=== PATIENT | male | born 1955 | race Caucasian/White ===

== ENCOUNTER 2018-12-11 18:57 | Observation (INO) | payer MEDICAID, SELFPAY ==
[2018-12-11] VITALS (7 sets, daily range): BP systolic 121–151; BP diastolic 83–96; PULSE 65–84; RESP 18–24; TEMP 36.4–36.7; O2SAT 93–96; BMI 41.0; BMI 33.4; BMI 33.5
--- NOTE | 2018-12-11 19:09 | EKG12_ITS ---
Test Reason : CP Blood Pressure : / mmHG Vent. Rate : 076 BPM Atrial Rate : 076 BPM P-R Int : 200 ms QRS Dur : 090 ms QT Int : 404 ms P-R-T Axes : 025 047 115 degrees QTc Int : 454 ms Normal sinus rhythm T wave abnormality, consider lateral ischemia Abnormal ECG Confirmed by YANET BELLO, RADHA ([id number]), newspaper photo editor NAOMEI YEAGER ([id number]) on 12/16/2018 11:06:32 AM Referred By: DC Confirmed By:RAJESH HOLT MD
--- NOTE | 2018-12-11 19:15 | RAD_ITS ---
STUDY: X-RAY CHEST REASON FOR EXAM: Male, 62 years old. Chest pain TECHNIQUE: Portable chest COMPARISON: None. FINDINGS: There are mild bilateral pulmonary opacities. There is no demonstrated pleural abnormality. There is generalized cardiomegaly. Normal mediastinum and rock. There is mild prominence of the pulmonary vessels. Normal visualized aortic arch and descending thoracic aorta. Normal visualized thoracic spine. Normal visualized ribs, clavicles, and shoulders. There is no demonstrated abnormality of the visualized soft tissue structures of the upper abdomen. RAD/Chest 1 View (Portable) IMPRESSION: There is cardiomegaly, mild pulmonary venous congestion Electronically Signed: Zhang Sánchez, at 20:39 EDT Tel , Service support ,
[2018-12-11] MEDS: 0.9% Normal Saline 1,000 ML 150 ML IV (19:18)
[2018-12-11 19:20] LABS: Absolute Lymphocyte Count 2.43 X10^3/ul (0.83-4.51); Absolute Neutrophil Count 5.7 X10^3/uL (2.0-7.7); Basophil# 0.05 X10^3/uL; Basophil% 0.5 % (0-1); Eosinophil# 0.24 X10^3/uL; Eosinophils% 2.6 % (0-5); Hematocrit 45.2 % (40-54); Hemoglobin 15.3 g/dl (13.0-16.5); Lymphocyte # 2.43 X10^3/ul (4.0); Lymphocyte % 26.5 % (19-41); Mean Corp Hgb Conc 33.8 g/gl (32-36); Mean Corpuscular Hgb 30.4 pg (27.0-32.0); Mean Corpuscular Volume 89.7 fL (80-94); Monocyte# 0.68 X10^3/uL; Monocyte% 7.4 % (0-10); Neutrophil # 5.71 X10^3/uL (2.7-7.7); Neutrophil % 62.3 % (47-70); Platelet Count 211 K/mm3 (150-450); RBC Distribution Width CV 13.3 % (11.6-14.6); RBC Distribution Width SD 43.2 fl (35.1-43.9); Red Blood Count 5.04 M/mm3 (4.6-6.2); White Blood Count 9.2 K/mm3 (4.4-11.0)
[2018-12-11 19:21] LABS: POSITIVE COUNT NO; POSITIVE DIFFERENTIAL NO; POSITIVE MORPHOLOGY NO
[2018-12-11 19:36] LABS: Anion Gap 5 (5-15); BUN 13 mg/dL (7-18); BUN/Creat Ratio 10.4 RATIO (10-20); Calcium,Total 8.7 mg/dL (8.5-10.1); Chloride 108 mmol/L (98-107); Creatinine, Serum 1.25 mg/dL (0.70-1.30); EST Glomerular Filtration Rate 62 mL/min (>60); Est Glom Filt Rate - Afr Amer 75 mL/min (>60); Estimated Creatinine Clearance 54.58 ml/min; Glucose 111 mg/dL (74-106); Potassium 3.4 mmol/L (3.5-5.1); Sodium Level 140 mmol/L (136-145)
[2018-12-11 19:41] LABS: D-Dimer Quantitative (DVT/PE) 0.27 FEU/ug/m (0.27-0.49)
--- NOTE | 2018-12-11 20:34 | ED.DCSUM_ITS ---
- ER Visit Summary Date of Service: 12/11/18 Chief Complaint: [Chest pain] History of Present Illness: The patient is a 62 M Zentz to the emergency department chest discomfort that started about 10 minutes ago. Patient describes a tightness retrosternal left chest that does not seem to radiate. He states that about half an hour ago he was standing and looking at a vehicle in the garage when he began feeling very dizzy and felt very short of breath. Patient began sweating profusely and felt like he was in a pass out. EMS was called. Patient then subsequently developed chest discomfort. Patient also states that he recently found out today that his vvovvad-vt-yir had . Patient does have a heart history with one-vessel CABG in 1999 at [facility] [place]. Patient has been noncompliant with his medications.] Patient currently rates his pain is a 1 out of 10. Physical Examination: [HEGONZALEZ-PERRLA, EOMI. Cranial nerves II through XII grossly intact. TMs clear. Mucous membranes moist. No adenopathy. Cardiovascular-regular rate and rhythm without murmur or ectopy Lungs-clear to auscultation, chest wall stable without crepitus or subcu emphysema Abdomen-normoactive bowel sounds, soft, nontender, no rebound or rigidity, no peritoneal signs. Extremities-intact ?4, normal range of motion, normal pulses, atraumatic] Test Results: [EKG obtained arrival shows sinus rhythm with a ventricular rate of [address] changes noted when compared with prior EKG from 2016 no significant new changes noted. CBC with differential showed a white count of 9.2, hemoglobin 15, hematocrit 45, platelets 211. Chemistries unremarkable. Troponin is less than 0.015. D-dimer was 0.27. Chest x-ray showed nothing acute.] Emergency Department Course and Treatment: [Patient had already taken aspirin today.] Treatment Plan: [Admit for further work-up and evaluation] Disposition: [Admit] Impression: [Chest pain-rule out acute coronary syndrome] This note was generated with Lightbox dictation software. It may contain incorrect words, spelling, and punctuation that were not noted in review of the chart prior to signing ED Disposition - Plan for ED Patient: Referrals: Care Physician,No Primary [Primary Care Provider] -
--- NOTE | 2018-12-11 20:50 | HP.PCM_ITS ---
Problem List (1) Syncope Status: Acute History of Present Illness Date of Admission: 12/11/18 Chief Complaint: syncope The patient is a 62 year old M with a significant history of CAD status post one-vessel arthroscopic CABG in 1999 at [facility] who presented to the emergency department with syncopal episode. Reportedly patient was working in his son's garage. While at the garage he felt hot; funny; diaphoretic and was about to pass out. He sat directly under a fan. He reported that his family said he passed out and his eyes rolled back. He reported that he felt numbness in the fingers of his bilateral hands reminiscent to his previous CAD; yet without Chest pain as in his previous CAD. He reported repeated episodes of the symptoms above. Patient has not followed up medically because he does not have insurance. Associated with his symptoms is nausea. Importantly while patient denies sapna chest pain to me he reported chest pain to the emergency department doctor; and the squad. Past Medical History Medical History: Medical History (Last Reviewed 12/12/18 @ 02:10 by Davidson Newman MD) HTN (hypertension) I10 Allergies No Known Allergies Allergy (Verified 02/21/16 07:34) Home Medications: Ambulatory Orders Medication Instructions Recorded Aspirin 325 mg PO DAILY@0800 02/21/16 Grape Seed Extract [Grape Seed] 50 mg PO DAILY 12/11/18 Multivit-Mins/Iron/Folic/Lycop 1 tab PO DAILY 12/11/18 [Centrum Men's Tablet] Surgical History: coronary bypass surgery, - Smoking Status: Former smoker Alcohol: Occasional - *Family History Maternal History Items: Heart Disease - His mother had heart disease in her old age Paternal History Items: Heart Disease - His father had heart disease in his 70s Review of Systems Constitutional: Denies: Chills, Fever, Weight Change HEENT: Denies: Head Aches, Sinus Congestion, Sinus Drainage Cardiovascular: Reports: Syncope. Denies: Chest Pain, Palpitations Respiratory: Denies: Cough, Shortness of breath at rest, Sputum production Gastrointestinal: Reports: Nausea. Denies: Abdominal Pain, Vomiting Genitourinary: Denies: Dysuria Musculoskeletal: Denies: Joint Pain, Joint Tenderness Skin: Denies: Rash, Wounds Neurological: Reports: Numbness. Denies: Focal weakness Psychiatric: Denies: Anxiety, Depression, Homicidal Ideations, Suicidal Ideations Hematologic/ Lymphatic: Denies: Easy Bruising, Easy Bleeding VTE Information - Inpt Only VTE Present on Admission: No VTE Mechan Device Prophylaxis: None VTE Pharm Prophylaxis ordered?: Yes Patient Problems: Active and Suspected Problems (Last Updated 12/11/18 @ 21:29 by Davidson Newman MD) Syncope (Acute) - Physical Exam General: Alert, Oriented x3, Cooperative HEENT: Atraumatic, PERRLA, EOMI, Normocephalic Neck: Supple, No JVD, Negative Carotid Bruits Lungs: Clear to auscultation, Normal air movement Cardiovascular: Regular rate, No murmurs Abdomen: Bowel Sounds Present, Soft, Non Tender Extremities: No edema, Capillary Refill Less than 3 Seconds Skin: No rashes, No breakdown Musculoskeletal: No Tenderness to Palpation of Joints or Extremities Neurological: Neuro grossly intact Psych/Mental Status: Normal Affect, Appropriate Vital Signs Temp Pulse Resp BP Pulse Ox 98.0 F 73 24 H 140/88 H 94 12/11/18 18:58 12/11/18 19:58 12/11/18 19:58 12/11/18 19:58 12/11/18 19:58 Oxygen Flow Rate (L/min) 2 Oxygen Delivery Method Nasal Cannula Weight: 115.2 kg Body Mass Index (BMI) 41.0 Laboratory Tests Past 24 Hrs 12/11/18 12/11/18 12/11/18 19:10 19:10 19:10 WBC 9.2 RBC 5.04 Hgb 15.3 Hct 45.2 MCV 89.7 MCH 30.4 MCHC 33.8 RDW 13.3 RDW Differential 43.2 Plt Count 211 MPV 11.0 Immature Gran % (Auto) 0.700 Neut % (Auto) 62.3 Lymph % (Auto) 26.5 [place] % (Auto) 7.4 Eos % (Auto) 2.6 Baso % (Auto) 0.5 Absolute Neuts (auto) 5.7 Absolute Lymphs (auto) 2.43 Total Counted Not Reportable D-Dimer Quant (PE/DVT) 0.27 Sodium 140 Potassium 3.4 L Chloride 108 H Carbon Dioxide 27.0 Anion Gap 5 BUN 13 Creatinine 1.25 Estim Creat Clear Calc 54.58 Est GFR (MDRD) Af Amer 75 Est GFR (MDRD) Non-Af 62 BUN/Creatinine Ratio 10.4 Glucose 111 H Calcium 8.7 Troponin I < 0.015 Assessment/Plan All Active Problems (Last Updated 12/11/18 @ 21:29 by Davidson Newman MD) Syncope (Acute) The patient is a 62 year old M with a significant history of CAD status post one-vessel arthroscopic CABG in 1999 at [facility] who presented to the emergency department with syncopal episode. Syncopal episode Differential diagnosis includes vasovagal syncope. However due to his previous history of CAD s/p CABG; and which he correlates with his present symptoms; will consult Cardiology for cardiac source of syncope. Admit to PCU on telemetry. We will continue aspirin. Nitroglycerin as needed. We will start patient on high intensity statin. Chest x-ray showed cardiomegaly with mild pulmonary congestion. Stop IVF started at ED. EKG showed T wave inversions in lateral leads with J-point elevation in V2. EKG was unchanged from that on 23 February 2016. Will order echocardiogram. Get orthostatic vitals. First troponin was negative; trend. HTN On presentation his blood pressure was not within goal. Will start on amlodipine. Trend blood pressure and adjust blood pressure management. Hypokalemia On presentation his potassium was 3.4. Replaced. DVT Prophylaxis SC Lovenox. Code Visit OBSV E&M: 46489 Initial observation care L3
--- NOTE | 2018-12-11 21:50 | ECHOD_ITS ---
Reason For Study: Syncope/Near Syncope Procedure This was a 2D Doppler, Color Flow transthoracic echocardiogram. Exam performed portable in patient room. Left Ventricle Normal left ventricle. Left ventricular systolic function is lower limits of normal. The estimated ejection fraction is 53 %. No regional wall motion abnormalities noted. Right Ventricle Normal RV size. Normal systolic function. Atria The left atrium is mildly enlarged. Normal right atrium. Mitral Valve Normal mitral valve. Mild (1+) eccentric mitral valve insufficiency. Tricuspid Valve Normal tricuspid valve. Unable to estimate RV systolic pressure due to inadequate jet, pulmonary artery pressure probably normal. Aortic Valve The aortic valve is not well visualized. Pulmonic Valve Normal pulmonic valve. Great Vessels Normal aortic root. The pulmonary artery is normal size. Normal inferior vena cava. Pericardium/Pleural No pericardial effusion. MMode/2D Measurements & Calculations LVIDd: 4.2 cm IVSd: 1.7 cm LA dimension: 4.2 cm LVIDs: 3.3 cm LVPWd: 1.3 cm FS: 22.0 % LAV(MOD-bp): 72.4 ml LVAd ap4: 38.8 cm2 SV(MOD-sp4): 69.1 ml LAV(MOD-bp) Indexed: 33.2 ml/m2 EDV(MOD-sp4): 135.0 ml LAV(MOD-sp2): 79.6 ml EDV(sp4-el): 139.5 ml LAV(MOD-sp4): 65.6 ml LVAs ap4: 24.6 cm2 ESV(MOD-sp4): 66.0 ml ESV(sp4-el): 63.1 ml EF(MOD-sp4): 51.1 % EF(sp4-el): 54.8 % SV(sp4-el): 76.4 ml LA A4 area: 21.3 cm2 Time Measurements MV dec time: 0.26 sec Doppler Measurements & Calculations MV E max papa: 57.4 cm/sec Lat Peak E' Papa: 6.3 cm/sec Med Peak E' Papa: 6.9 cm/sec MV A max papa: 70.6 cm/sec E/E' lat: 9.1 E/E' med: 8.3 MV E/A: 0.81 MV V2 max: 84.6 cm/sec MV P1/2t max papa: 70.2 cm/sec Ao V2 max: 93.2 cm/sec MV max P.9 mmHg MV P1/2t: 89.4 msec Ao max P.5 mmHg MV V2 mean: 47.2 cm/sec MV mean P.0 mmHg MV dec slope: 229.9 cm/sec2 MV V2 VTI: 21.5 cm MVA(P1/2t): 2.5 cm2 LV V1 max: 66.9 cm/sec MR max papa: 375.1 cm/sec PA V2 max: 74.2 cm/sec LV V1 max P.8 mmHg MR max P.3 mmHg Interpretation Summary Normal left ventricle. Left ventricular systolic function is lower limits of normal. The estimated ejection fraction is 53 %. No regional wall motion abnormalities noted. Mild (1+) eccentric mitral valve insufficiency. Ordering Physician: Davidson Newman Referring Physician: julissa PCP Performed By: Lazaro Schafer RCS
--- NOTE | 2018-12-11 21:50 | EKG12_ITS ---
Test Reason : CP ADMIT Blood Pressure : / mmHG Vent. Rate : 062 BPM Atrial Rate : 062 BPM P-R Int : 202 ms QRS Dur : 088 ms QT Int : 424 ms P-R-T Axes : 032 033 116 degrees QTc Int : 430 ms Normal sinus rhythm Cannot rule out Inferior infarct , age undetermined T wave abnormality, consider lateral ischemia Abnormal ECG When compared with ECG of 11-DEC-2018 19:01, MANUAL COMPARISON REQUIRED, DATA IS UNCONFIRMED Confirmed by YANET BELLO, RADHA ([id number]), editor producer NAOMIE YEAGER ([id number]) on 12/17/2018 6:47:32 AM Referred By: DR ESTES Confirmed By:RAJESH HOLT MD
[2018-12-11] MEDS: Atorvastatin Calcium 80 MG Tablet PO (23:26)
[2018-12-12] VITALS (22 sets, daily range): BP systolic 138–187; BP diastolic 76–122; PULSE 56–90; RESP 14–23; TEMP 36.7–36.9; O2SAT 91–99
[2018-12-12 04:27] LABS: Cholesterol 179 mg/dL (200); High Density Lipoprotein 36 mg/dL; Triglycerides 204 mg/dL; Very Low Density Lipoprotein 41 mg/dL (5-40)
--- NOTE | 2018-12-12 07:41 | CON.PCM_ITS ---
Reason for Consult Date of Consultation: 12/12/18 Reason for Consultation: Near syncope History of Present Illness: The patient is a 62 year old M with a previous medical history significant for coronary artery disease status post coronary artery bypass surgery in 1999 with a single vessel. This was performed at [facility]. He has had no medical or cardiological follow-up. He says that he has had a few episodes of presyncope where he breaks out into a profuse sweat. He sometimes also gets dizzy when he bends forward. Yesterday he had a similar episode and was associated with mild chest discomfort. There was diaphoresis noted no palpitations were present. He remains fairly active. He has had no sapna syncopal episodes. He denies any orthopnea paroxysmal nocturnal dyspnea or pedal edema. He has been somewhat compliant with his medications. [] Past Medical History Allergies/Adverse Reactions: Allergies No Known Allergies Allergy (Verified 02/21/16 07:34) Home Medications: Ambulatory Orders Medication Instructions Recorded Aspirin 325 mg PO DAILY@0800 02/21/16 Grape Seed Extract [Grape Seed] 50 mg PO DAILY 12/11/18 Multivit-Mins/Iron/Folic/Lycop 1 tab PO DAILY 12/11/18 [Centrum Men's Tablet] Surgical History: coronary bypass surgery, - - *Family History Maternal History Items: Heart Disease - His mother had heart disease in her old age Paternal History Items: Heart Disease - His father had heart disease in his 70s Lives: Alone Smoking Status: Former smoker Alcohol: Occasional Drugs: None Review of Systems - Review of Systems General: Denies: Fever, Night Sweats, Fatigue HEENT: Denies: Vision Change Cardiovascular: Reports: Chest Discomfort, Dizziness, Near Syncope. Denies: Shortness of Breath, Orthopnea, PND, Peripheral Edema, Palpitations, Lightheadedness, Syncope Respiratory: Denies: Cough, Sputum Production, Hemoptysis Gastrointestinal: Denies: Hematemesis, Hematochezia, Melena Genitourinary: Denies: Dysuria, Hematuria Muscoloskeletal: Denies: Myalgias Skin: Denies: Rash Neurological: Reports: Dizziness Psychiatric: Denies: Anxiety Endocrine: Denies: Heat Intolerance Hematologic/ Lymphatic: Denies: Anemia Subjectve: Pleasant gentleman in no apparent distress. Objective: Vital Signs Temp Pulse Resp BP Pulse Ox 98.5 F 56 L 18 138/88 H 97 12/12/18 03:52 12/12/18 03:52 12/12/18 03:52 12/12/18 03:52 12/12/18 03:52 Oxygen Flow Rate (L/min) 2 Oxygen Delivery Method Room Air Weight: 246 lb 11.156 oz Body Mass Index (BMI) 33.4 Orthostatic Vital Signs Start: 12/11/18 23:36 Freq: q24h Status: Active Protocol: Activity Type Activity Date Activity User E-Sign Co-Sign Detail Recorded Client Recorded Date Recorded By Document 12/11/18 23:15 CAD [id number] 12/11/18 23:37 CAD 12/11/18 23:15 Orthostatic Vitals Standing -Blood Pressure (90/60-120/80) 142/96 H -Extremity Use Left Arm -Pulse Rate (60-100) 84 Sitting -Blood Pressure (90/60-120/80) 149/91 H -Extremity Use Left Arm -Pulse Rate (60-100) 65 Lying -Blood Pressure (90/60-120/80) 151/83 H -Extremity Use Left Arm -Pulse Rate (60-100) 71 Intake and Output for Last 24 Hours 12/10/18 12/11/18 12/12/18 23:59 23:59 23:59 Intake Total 720 / 720 Output Total 700 / 700 Balance General: Awake, Alert, Oriented x 3 HEENT: PERRL, EOMI, Sclera Non Icteric Neck: Supple, Good ROM, No Lymph Node Enlargement Lungs: Clear to auscultation Cardiovascular: Regular Rhythm, Normal S1, Normal S2, No Murmurs, No Rubs, No Gallops Vascular: No Carotid Bruits, Normal Femoral Pulses, Normal Radial Pulses, Normal Dorsalis Pedal Pulse, Normal Posterior Tibial Pulses Abdomen: Bowel Sounds Present, Soft, Non Tender, No HSM, No Organomegaly Extremities: No Cyanosis, No Clubbing, No edema Musculoskeletal: No Erythema Skin: No Rashes Lymphatic: No Lymph Node Enlargement Neurological: No Focal Motor or Sensory Deficit 12/11/18 19:10: WBC 9.2, RBC 5.04, Hgb 15.3, Hct 45.2, MCV 89.7, MCH 30.4, MCHC 33.8, RDW 13.3, RDW Differential 43.2, Plt Count 211, MPV 11.0, Immature Gran % (Auto) 0.700, Neut % (Auto) 62.3, Lymph % (Auto) 26.5, [place] % (Auto) 7.4, Eos % (Auto) 2.6, Baso % (Auto) 0.5, Absolute Neuts (auto) 5.7, Total Counted Not Repo rtable 12/11/18 19:10: D-Dimer Quant (PE/DVT) 0.27 12/11/18 19:10: Sodium 140, Potassium 3.4 L, Chloride 108 H, Carbon Dioxide 27.0, Anion Gap 5, BUN 13, Creatinine 1.25, Est GFR (MDRD) Af Amer 75, Est GFR (MDRD) Non-Af 62, BUN/Creatinine Ratio 10.4, Glucose 111 H, Calcium 8.7, Troponin I < 0.015 12/11/18 22:45: Troponin I < 0.015 12/12/18 01:29: Troponin I < 0.015 12/12/18 01:29: Triglycerides 204 H, Cholesterol 179, LDL Cholesterol 102, VLDL Cholesterol 41 H, HDL Cholesterol 36 L Rhythm: EKG: ECHO: Stress Test: Cardiac Cath: PCI: CT Surgery: Holter monitor: EPS: PPM: CXR: Chest CT Scan: Assessment/Plan 1. Presyncope The etiology of the above is not entirely clear. He is on no rate limiting or blood pressure medications. I would suggest that we obtain an echocardiogram to assess his left ventricular function and then depending on the results of the above further recommendations will be made. His telemetry monitoring overnight did not demonstrate any significant bradycardia or tachyarrhythmias. He may need an event monitor if no apparent causes elucidated. 2. Chest pain * Presents with chest pain and is status post coronary artery bypass surgery with no follow-up. My recommendation at this time would be to obtain an exercise myocardial perfusion stress test to see how he does. Further recommendations will then be undertaken based on the results of the above. * 3. Risk factor modification * We will continue with aggressive risk factor modification. Aspirin and statins will be continued. * * Thank you for allowing me to participate in the care of your patient. Please don't hesitate to call if any issues arise
[2018-12-12] MEDS: Aspirin 325 MG Tablet PO (08:09)
[2018-12-12] MEDS: amLODIPine 5 MG Tablet PO (08:09)
--- NOTE | 2018-12-12 11:54 | STRESSREP ---
Stress Test Report Date: 12/12/2018 Procedure: Exercise tolerance test/imaging study Indications: Chest pain Consent: Per the patient Procedure: The patient exercised on a Shaji protocol for 4 minutes and 1 second achieving a peak heart rate of 141 bpm (89 % predicted maximal heart rate) with a peak blood pressure 170/100 mmHg and a peak MET capacity of 5.8 METs. The baseline ECG demonstrated normal sinus rhythm nonspecific T wave changes. The peak exercise ECG demonstrated sinus tachycardia with about [address] depression in the inferior leads. EKG during recovery revealed persistence of the ST changes in the inferior leads [There were no cardiac dysrhythmias pretest, during exercise, or recovery]. The functional capacity was considered decreased for age. There was [no complaint of chest discomfort during exercise or recovery]. The examination was discontinued secondary to dyspnea. Impression: 1. Technically adequate (percent predicted maximal heart rate greater than 85%) exercise tolerance test 2. Stress test is positive for exercise-induced EKG changes of ischemia 3. The test test is negative for exercise-induced chest pain 4. Functional capacity is decreased for age 5. Nuclear images pending Myocardial perfusion imaging study: Technique: The patient was injected with 14.9 mCi of technetium 99m Cardiolite and subsequently rest SPECT Cardiolite nuclear imaging was obtained in the horizontal long, vertical long, and short axis views. The patient exercised on a Shaji protocol. Please see above for details. The patient was injected with 44.6 mCi of technetium 99m Cardiolite and subsequently stress SPECT Cardiolite nuclear imaging was obtained in the horizontal long, vertical long, and short axis views. A gated Cardiolite study at peak stress was obtained. Interpretation: Rest and stress SPECT Cardiolite nuclear imaging status post realignment, normalization, and attenuation correction, demonstrates mild decrease in radioisotope uptake in the inferior wall prior to attenuation correction. This appears to be due to diaphragmatic attenuation artifact. After recognition correction there is mild decrease in the radioisotope uptake in the apex on the rest images which is slightly worse on the stress images suggestive of prior apical infarction with mild lu-infarct ischemia. The gated Cardiolite study demonstrates mild apical ischemia. The reported LVEF is 48 %. Impression: 1. There is evidence of possible prior apical myocardial infarction with mild lu-infarct ischemia. 2. The gated Cardiolite study reports an LVEF of 48 %. This note was generated with Dragon dictation software. It may contain incorrect words, spelling, and punctuation that were not noted in checking the note before signing.
--- NOTE | 2018-12-12 12:21 | PN_ITS ---
Patient Problems: Active and Suspected Problems (Last Reviewed 12/12/18 @ 02:10 by Davidson Newman MD) Syncope (Acute) Subjective: Patient seen and examined. Denies further lightheadedness, syncope. Denies chest pain, shortness of breath. Patient does report over the past several months he has had shortness of breath and diaphoresis with mild exertion. He reports he was previously on blood pressure regimen and cardiac medications which he has no longer been taking. - Physical Exam General: Alert, Oriented x3, Cooperative HEENT: Atraumatic, PERRLA, EOMI, Normocephalic Neck: Supple, No JVD, Negative Carotid Bruits Lungs: Clear to auscultation, Normal air movement Cardiovascular: Regular rate, Regular Rhythm, Normal S1, Normal S2, No murmurs Abdomen: Bowel Sounds Present, Soft, Non Tender, Non-Distended Extremities: No clubbing, No cyanosis, No edema, Capillary Refill Less than 3 Seconds Skin: No rashes, No breakdown Musculoskeletal: No Tenderness to Palpation of Joints or Extremities Neurological: Cranial nerves II-XII grossly intact, Neuro grossly intact Psych/Mental Status: Normal Affect, Appropriate Vital Signs Temp Pulse Resp BP Pulse Ox 98.3 F 73 14 151/93 H 94 12/12/18 08:03 12/12/18 10:58 12/12/18 08:03 12/12/18 08:03 12/12/18 08:03 Oxygen Flow Rate (L/min) 2 Oxygen Delivery Method Room Air Weight: 246 lb 11.156 oz Body Mass Index (BMI) 33.4 Orthostatic Vital Signs Start: 12/11/18 23:36 Freq: q24h Status: Active Protocol: Activity Type Activity Date Activity User E-Sign Co-Sign Detail Recorded Client Recorded Date Recorded By Document 12/11/18 23:15 CAD [id number] 12/11/18 23:37 CAD 12/11/18 23:15 Orthostatic Vitals Standing -Blood Pressure (90/60-120/80) 142/96 H -Extremity Use Left Arm -Pulse Rate (60-100) 84 Sitting -Blood Pressure (90/60-120/80) 149/91 H -Extremity Use Left Arm -Pulse Rate (60-100) 65 Lying -Blood Pressure (90/60-120/80) 151/83 H -Extremity Use Left Arm -Pulse Rate (60-100) 71 Intake and Output for Last 24 Hours 12/10/18 12/11/18 12/12/18 23:59 23:59 23:59 Intake Total 720 / 720 Output Total 700 / 700 Balance Laboratory Tests Past 24 Hrs 12/11/18 12/11/18 12/11/18 19:10 19:10 19:10 WBC 9.2 RBC 5.04 Hgb 15.3 Hct 45.2 MCV 89.7 MCH 30.4 MCHC 33.8 RDW 13.3 RDW Differential 43.2 Plt Count 211 MPV 11.0 Immature Gran % (Auto) 0.700 Neut % (Auto) 62.3 Lymph % (Auto) 26.5 [place] % (Auto) 7.4 Eos % (Auto) 2.6 Baso % (Auto) 0.5 Absolute Neuts (auto) 5.7 Absolute Lymphs (auto) 2.43 Total Counted Not Reportable D-Dimer Quant (PE/DVT) 0.27 Sodium 140 Potassium 3.4 L Chloride 108 H Carbon Dioxide 27.0 Anion Gap 5 BUN 13 Creatinine 1.25 Estim Creat Clear Calc 54.58 Est GFR (MDRD) Af Amer 75 Est GFR (MDRD) Non-Af 62 BUN/Creatinine Ratio 10.4 Glucose 111 H Calcium 8.7 Troponin I < 0.015 Triglycerides Cholesterol LDL Cholesterol VLDL Cholesterol HDL Cholesterol 12/11/18 12/12/18 12/12/18 22:45 01:29 01:29 WBC RBC Hgb Hct MCV MCH MCHC RDW RDW Differential Plt Count MPV Immature Gran % (Auto) Neut % (Auto) Lymph % (Auto) [place] % (Auto) Eos % (Auto) Baso % (Auto) Absolute Neuts (auto) Absolute Lymphs (auto) Total Counted D-Dimer Quant (PE/DVT) Sodium Potassium Chloride Carbon Dioxide Anion Gap BUN Creatinine Estim Creat Clear Calc Est GFR (MDRD) Af Amer Est GFR (MDRD) Non-Af BUN/Creatinine Ratio Glucose Calcium Troponin I < 0.015 < 0.015 Triglycerides 204 H Cholesterol 179 LDL Cholesterol 102 VLDL Cholesterol 41 H HDL Cholesterol 36 L Medical Necessity - Tobacco Use Smoking Status: Former smoker Assessment/Plan All Active Problems (Last Reviewed 12/12/18 @ 02:10 by Davidson Newman MD) Syncope (Acute) 1. Syncope-troponin negative. Orthostatic vitals negative. Chest x-ray with cardiomegaly, mild pulmonary venous congestion. Echocardiogram with EF 53%, no regional wall motion abnormalities. Mild mitral valve insufficiency. Possible vasovagal syncope. To undergo cardiac catheterization this afternoon to rule out underlying CAD/ischemic etiology. Telemetry without arrhythmias. Patient may require event monitor if cardiac catheterization unremarkable or no other apparent etiology. 2. Chest pain/dyspnea on exertion with prior history of CAD status post CABG in 1999-EKG without evidence of acute ischemia, T wave inversions in lateral leads which is unchanged from prior EKG. Cardiology consulted. Troponin negative. Echocardiogram with EF 53%, no regional wall motion abnormalities. Mild mitral valve insufficiency. Stress test abnormal. Plan to undergo cardiac catheterization this afternoon. Continue aspirin, statin. 3. Hypertension-previously on regimen which he is no longer taking. Initiated on amlodipine 5 mg daily. 4. Hyperlipidemia-previously on statin which she has no longer been taking. Lipid profile elevated. Initiate atorvastatin nightly. 5. Obesity-encouraged diet and lifestyle modifications. 6. Former tobacco use-encouraged continued cessation. DVT prophylaxis- Lovenox ia This patient was seen by ARACELIS Garcia under the supervision of Dr. Schmidt.
[2018-12-12] MEDS: 0.9% Normal Saline 1,000 ML 75 ML IV ×2 (12:27→19:40)
--- NOTE | 2018-12-12 12:40 | NURSING ---
consent signed for cardiac cath patient informed by Dr. Flood
--- NOTE | 2018-12-12 12:48 | NURSING ---
patient taken down to labor representative
[2018-12-12 13:28] LABS: BNP,B-Type NATRIURETIC PEPTIDE 8.8 pg/mL (0-100)
--- NOTE | 2018-12-12 14:30 | EKG12_ITS ---
Test Reason : AM Blood Pressure : / mmHG Vent. Rate : 085 BPM Atrial Rate : 085 BPM P-R Int : 192 ms QRS Dur : 084 ms QT Int : 386 ms P-R-T Axes : 034 048 080 degrees QTc Int : 459 ms Normal sinus rhythm T wave abnormality, consider lateral ischemia Abnormal ECG When compared with ECG of 12-DEC-2018 14:55, MANUAL COMPARISON REQUIRED, DATA IS UNCONFIRMED Confirmed by KANCHAN BELLO, BROOKE ([id number]), international editorial producer NAOMIE YEAGER ([id number]) on 12/17/2018 8:18:32 AM Referred By: DEL Confirmed By:BROOKE HEMPHILL MD
--- NOTE | 2018-12-12 15:09 | CL.I_ITS ---
Patient Name: CHARANJIT CENTENO Study Date: 12/12/2018 Performing: Jaya Barrett MD Ht: 72.04 inches 183 cm : 1955 Wt: 246.92 lbs 112 kg Age: 62 Gender: male BSA: 2.33 PROCEDURE(S) PERFORMED AE02-GLX/COR/LV [id number] W OR WO PTCA, SINGLE CORONARY ARTERY CLINICAL PROFILE AND CO-MORBIDITIES Indications: Suspected CAD Heart Failure: None Stress/Imaging Date: 12/12/18 CAD Presentations: Unstable angina. CONCLUSIONS CAD as described, Patent 06/25 bypass graft. LVEF is around 50%. No significant or MR Successful PCI with Bare metal stent to the proximal and distal RCA RECOMMENDATIONS ASA Indefinitley, brilinta or plavix or effient for a minimum of 30 days and ideally for 1 year. Risk factor modification Follow up with Dr. Flood Routine post interventional care DESCRIPTION OF PROCEDURE The patient arrived to the procedure lab. The risks and benefits of the procedure as well as a full d escription of our services here and lack of surgical backup were fully explained to the patient and/o r their significant other prior to the catheterization. The Timeout was completed, verifying the elias ect patient and procedure. The patient's procedural site was prepped and draped in the usual fashion. Local anesthetic was given subcutaneously to right groin region with Lidocaine 2%. Using a modified Seldinger technique, arterial access was obtained via the right femoral artery, a 5Fr sheath was inse rted.. Left Coronary Artery selective angiography was performed in multiple views using a 5 Fr. JL 4 catheter. Right Coronary Artery selective angiography was then performed in multiple views using a 5 Fr. JR 4 catheter. Left internal mammary artery graft to the LAD selective angiography was performed in multiple views using a 5 Fr. JR 4 catheter. Left Ventriculography was performed in LEO projection using a 5 Fr. Pigtail catheter. LV to AO pullback pressures were then recorded Arterial sheath was exchanged for a 6 Fr Sheath. JR 4 Guide catheter was inserted and engaged int o the RCA. BMW Guide wire was advanced to the RCA. 2.5x12 Emerge Balloon catheter was inserted. Ballo on catheter was advanced across lesion in the right coronary, distal. PTCA balloon inflated at 10 phillip s for 30 secs. PTCA balloon inflated at 10 atms for 20 secs. Balloon catheter was repositioned to add itional lesion in the right coronary, proximal. 3x12 NC Emerge Balloon catheter was inserted. Balloon catheter was advanced across lesion in the right coronary, distal. PTCA balloon inflated at 12 atms for 32 secs. Balloon catheter was repositioned to additional lesion in the right coronary, proximal. PTCA balloon inflated at 12 atms for 18 secs. 3.5x12 Integrity Bare metal stent was inserted. Bare Me irineo stent was advanced across the lesion in the right coronary, distal. 3.5x18 Integrity Bare metal s tent was inserted. Bare Metal stent was advanced across the lesion in the right coronary, proximal. Angiogram performed post stent deployment. 2.5x14 Integrity Bare Metal stent was advanced a cross the lesion in the right coronary, distal. Angiogram performed post stent deployment. Contrast w as injected through the sheath and the Right Iliac and Femoral artery were assessed for possible clos ure device. The arterial sheath was pulled and a Perclose closure device was deployed for hemostasis CORONARY ANGIOGRAPHY DOMINANCE: Right Dominant LEFT HEART ASSESSMENT Left Ventricular Ejection Fraction: by LV Gram 50 % Inferior Apical Hypokinesis - Mild LEFT MAIN: Mild luminal irregularities. There is an ulcerated lesion in the distal left main that doesn't appea r to cause any flow limitation into the LCx. LEFT ANTERIOR DESCENDING ARTERY: Proximal LAD is severely ectatic and the LAD is occluded beyond the ectatic portion. Distal LAD which was visualized via FABIAN to LAD injection has seveere diffuse diseas e in the apical portion which should be treated medically.Mid LAD has mild luminal irregularities and was visualized via FABIAN to LAD injection CIRCUMFLEX ARTERY: Mild diffuse disease. Proximal LCx is ectatic. 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 There is an 80% stenosis in the proximal portion of the RCA just after the aneurysm. There is a 90% stenosis in the distal RCA followed by another 70% stenosis just before the RCA biufurcates into the RPDA and RPL. GRAFTS: FABIAN graft to the LAD is patent VALVE FINDINGS: No Aortic Valve Stenosis No Mitral Insufficency INTERVENTION INFORMATION LESION SITE: RCA (Distal) Lesion Complexity: High/C, chronic total occlusion: No, lesion at bifurcation: No, thrombus present: No, lesion length: 12 mm, culprit lesion: Yes, Previously treated lesion: No Pre Stenosis: 90 % Pre intervention KEILY flow: 2 PROCEDURE: Bare Metal Stent with pre dilatation. Post Stenosis: 0 % Post intervention KEILY flow: 3 Lesion Devices: Cordis 6 Fr JR4 100cm Guide Catheter Eugnee .014 BMW [place] Straight 190cm Daniele Sci EMERGE MR 2.50x12 BALLOON Daniele Sci NC EMERGE MR 3.00x12 BALLOON Medtronic Integrity RX BMS 3.5x12 Medtronic Integrity RX BMS 2.5x14 LESION SITE: RCA (Proximal) Lesion Complexity: High/C, chronic total occlusion: No, lesion at bifurcation: No, thrombus present: No, lesion length: 14 mm, culprit lesion: Yes, Previously treated lesion: No Pre Stenosis: 80- % Pre intervention KEILY flow: 2 PROCEDURE: Bare Metal Stent with pre dilatation. Post Stenosis: 0 % Post intervention KEILY flow: 3 Lesion Devices: Cordis 6 Fr JR4 100cm Guide Catheter Eugene .014 BMW [place] Straight 190cm Daniele Sci EMERGE MR 2.50x12 BALLOON Daniele Sci NC EMERGE MR 3.00x12 BALLOON Medtronic Integrity RX BMS 3.5x18 COMPLICATIONS No Complications PROCEDURE MEDICATIONS Versed 1 mg IV Fentanyl 50 mcg IV Oxygen: 2 L/min via nasal cannula Brilinta 180 mg PO @ 12/12/2018 14:14:58 Heparin 7000 unit(s) IV 12/12/2018 13:39:55 SUMMARY OF HEMODYNAMIC DATA Time AIR REST ECG 13:06:51 AO 178/109 (138) SA 13:22:18 LV 159/1, 27 13:34:14 LV 162/2, 29 13:34:21 LV 161/2, 29 13:35:39 LVp 159/3, 30 13:35:46 AOp 157/87 (117) 13:35:51 14:43:41 Signed By Jaya Barrett MD On 12/12/2018 3:08:48 PM Jaya Barrett MD
[2018-12-12] MEDS: Acetaminophen 325 MG Tablet 650 MG PO ×2 (16:28→23:22)
[2018-12-12 19:09] LABS: Anion Gap 9 (5-15); BUN 10 mg/dL (7-18); BUN/Creat Ratio 10.1 RATIO (10-20); Calcium,Total 8.9 mg/dL (8.5-10.1); Chloride 106 mmol/L (98-107); Creatinine, Serum 0.99 mg/dL (0.70-1.30); EST Glomerular Filtration Rate 81 mL/min (>60); Est Glom Filt Rate - Afr Amer 98 mL/min (>60); Estimated Creatinine Clearance 83.83 ml/min; Glucose 121 mg/dL (74-106); Magnesium 2.1 mg/dL (1.6-2.6); Potassium 3.6 mmol/L (3.5-5.1); Sodium Level 140 mmol/L (136-145)
[2018-12-12 19:17] LABS: Hemoglobin A1c 6.2 % (4.2-6.3)
--- NOTE | 2018-12-12 19:22 | NURSING ---
Sandbag removed from right groin site. Site is soft, but bruised.
[2018-12-12] MEDS: hydrALAZINE 20 MG/ML Vial 10 MG IV (23:19)
[2018-12-12] MEDS: Atorvastatin Calcium 80 MG Tablet PO (23:22)
[2018-12-12] MEDS: TICAGRELOR 90 MG TABLET PO (23:23)
[2018-12-12] MEDS: 0.9% NaCl Peripheral Flush Adult/Peds IV (23:27)
[2018-12-13] VITALS (12 sets, daily range): BP systolic 126–172; BP diastolic 52–106; PULSE 68–100; RESP 12–21; TEMP 36.7–36.8; O2SAT 93–96
[2018-12-13] MEDS: 0.9% NaCl Peripheral Flush Adult/Peds IV (03:12)
[2018-12-13 03:40] LABS: Anion Gap 11 (5-15); BUN 10 mg/dL (7-18); BUN/Creat Ratio 9.1 RATIO (10-20); Calcium,Total 8.8 mg/dL (8.5-10.1); Chloride 109 mmol/L (98-107); EST Glomerular Filtration Rate 72 mL/min (>60); Est Glom Filt Rate - Afr Amer 87 mL/min (>60); Estimated Creatinine Clearance 74.46 ml/min; Glucose 126 mg/dL (74-106); Potassium 3.6 mmol/L (3.5-5.1); Sodium Level 143 mmol/L (136-145)
--- NOTE | 2018-12-13 07:32 | PN.CARD_ITS ---
Subjectve: Patient seen and evaluated. Appears to be doing well. No cardiac complaints. Objective: Vital Signs Temp Pulse Resp BP Pulse Ox 98.1 F 76 19 H 142/106 H 93 12/13/18 03:00 12/13/18 06:00 12/13/18 06:00 12/13/18 06:00 12/13/18 06:00 Oxygen Flow Rate (L/min) 2 Oxygen Delivery Method Room Air Weight: 246 lb 0.574 oz Body Mass Index (BMI) 33.4 Orthostatic Vital Signs Start: 12/11/18 23:36 Freq: q24h Status: Active Protocol: Activity Type Activity Date Activity User E-Sign Co-Sign Detail Recorded Client Recorded Date Recorded By Document 12/11/18 23:15 CAD [id number] 12/11/18 23:37 CAD 12/11/18 23:15 Orthostatic Vitals Standing -Blood Pressure (90/60-120/80) 142/96 H -Extremity Use Left Arm -Pulse Rate (60-100) 84 Sitting -Blood Pressure (90/60-120/80) 149/91 H -Extremity Use Left Arm -Pulse Rate (60-100) 65 Lying -Blood Pressure (90/60-120/80) 151/83 H -Extremity Use Left Arm -Pulse Rate (60-100) 71 Intake and Output for Last 24 Hours 12/11/18 12/12/18 12/13/18 23:59 23:59 23:59 Intake Total 1761 / 1761 705 / 705 Output Total 2275 / 2275 1100 / 1100 Balance -514 / -514 -395 / -395 General: Awake, Alert, Oriented x 3 HEENT: PERRL, EOMI, Sclera Non Icteric Neck: Supple, Good ROM, No Lymph Node Enlargement Lungs: Clear to auscultation Cardiovascular: Regular Rhythm, Normal S1, Normal S2, No Murmurs, No Rubs, No Gallops Vascular: No Carotid Bruits, Normal Femoral Pulses, Normal Radial Pulses, Normal Dorsalis Pedal Pulse, Normal Posterior Tibial Pulses Abdomen: Bowel Sounds Present, Soft, Non Tender, No HSM, No Organomegaly Extremities: No Cyanosis, No Clubbing, No edema Musculoskeletal: No Erythema Skin: No Rashes Lymphatic: No Lymph Node Enlargement Neurological: No Focal Motor or Sensory Deficit Psych/Mental Status: Appropriate 12/12/18 12:45: B-Natriuretic Peptide 8.8 12/12/18 18:35: Sodium 140, Potassium 3.6, Chloride 106, Carbon Dioxide 25.0, Anion Gap 9, BUN 10, Creatinine 0.99, Est GFR (MDRD) Af Amer 98, Est GFR (MDRD) Non-Af 81, BUN/Creatinine Ratio 10.1, Glucose 121 H, Calcium 8.9, Magnesium 2.1 12/12/18 18:35: Hemoglobin A1c 6.2 12/13/18 03:05: Sodium 143, Potassium 3.6, Chloride 109 H, Carbon Dioxide 23.0, Anion Gap 11, BUN 10, Creatinine 1.10, Est GFR (MDRD) Af Amer 87, Est GFR (MDRD) Non-Af 72, BUN/Creatinine Ratio 9.1 L, Glucose 126 H, Calcium 8.8 Rhythm: EKG: ECHO: Stress Test: Cardiac Cath: PCI: CT Surgery: Holter monitor: EPS: PPM: CXR: Chest CT Scan: Medical Necessity - Tobacco Use Smoking Status: Former smoker Assessment/Plan 1. Presyncope The etiology of the above is not entirely clear. He is on no rate limiting or blood pressure medications. His echocardiogram demonstrated preserved left ventricular systolic function. We will continue to monitor him. 2. Chest pain * Presents with chest pain and is status post coronary artery bypass surgery with no follow-up. * He underwent exercise stress testing which demonstrated evidence of apical ischemia and he had a follow-up cardiac catheterization. The left internal mammary artery to the left anterior descending artery was open with distal mild disease Dominant right coronary artery was severely diseased Left circumflex artery was moderately diseased Left anterior descending artery was totally occluded Ectatic proximal right coronary artery and proximal left anterior descending artery was noted. He subsequently underwent angioplasty and stenting of his right coronary artery yesterday. This morning he is doing well. No EKG changes are noted. Hemoglobin is stable. He will be discharged for outpatient follow-up. 3. Risk factor modification * We will continue with aggressive risk factor modification. Aspirin and statins will be continued. * * Thank you for allowing me to participate in the care of your patient. Please don't hesitate to call if any issues arise * Arrangements will be made for him to see me in the office in 2 to 4 weeks.
--- NOTE | 2018-12-13 08:22 | CRPHASE1 ---
Patient Communication PHII Cardiac Rehab Discussed with Patient:: Yes Guide to Cardiac Rehab Given to Patient:: Yes Cardiac Rehab Facility Choice List Given to Patient:: Yes Choice Program [facility] CR PHII:: Communication Given to CR, Refer to [facility] Splitter Operator:: Chandra Barrett Phase II Cardiac Rehab:: Yes Sessions:: 36 sessions - 3 days/wk, 12 weeks Risk Factors/Lifestyle Smoking Status: Former smoker Hx Hypertension: Yes Hx Diabetes Mellitus Type 1: No Hx Diabetes Mellitus Type 2: No Hx Metabolic Disorders: Yes Hx Dyslipidemia: Yes Hx Obesity: Yes Height: 6 ft 1 in - BMI 33.4 Stress: Home/Family Risk Factor for Sedentary Lifestyle: Moderate Risk Laboratory Values: Cardiac Rehab Phase I Labs 6.2 % (4.2-6.3) 12/12/18 18:35 Triglycerides 204 mg/dL (-199) H 12/12/18 01:29 Cholesterol 179 mg/dL (200) 12/12/18 01:29 102 mg/dL (0-130) 12/12/18 01:29 36 mg/dL (40-) L 12/12/18 01:29 Phase I Education Given On:: [place], Nutrition, Antiplatelet medication Issues Affecting Care:: None Knowledge of Condition:: Yes Learning Preferences: Verbal, Written Hospital Course Presenting Symptoms:: SYNCOPE Medical/Surgical History DC:: No CAD:: Yes Cardiomyopathy:: No COPD:: No Diabetes:: No Hypertension:: Yes Dyslipidemia:: Yes Discharge/Home/Social Eval Discharge Disposition: Home Cardiac Rehabilitation Info Cardiac Rehabilitation Program Information: Cardiac Rehabilitation is important for patients like you who are recovering from a heart problem. Cardiac rehabilitation programs are recognized as integral to the continued care of the patient with coronary heart disease. The cardiac rehabilitation program is designed to optimize a patient's physical, psychological, and social functioning. Health workforce investment act career manager work in cardiac rehabilitation programs and assist you with getting the treatments you need to get stronger and healthier - like exercise, healthy eating habits, and medications. Cardiac rehabilitation has been show to help people with heart problems live longer and have better life enjoyment than people who do not go to cardiac rehabilitation. Please contact the Cardiac Rehabilitation Program at [facility] at in two weeks if you have not heard from them.
--- NOTE | 2018-12-13 08:24 | CRPH1.INSTRU ---
General Education CAD and cardiac anatomy and function:: Patient communicates acknowledgment Explanation of diagnoses and procedures:: Patient communicates acknowledgment Sign/Symptoms of ND:: Patient communicates acknowledgment Antiplatelet therapy: Patient communicates acknowledgment Proper use of NTG-SL: Not instructed Emergency procedures and activation of EMS: Patient communicates acknowledgment Compliance of all prescribed medications: Patient communicates acknowledgment Smoking Recommendations Include:: Previous smoker; encourage continued cessation Nicotine/Smoking Response Code:: Patient communicates acknowledgment Dyslipidemia Patient Dyslipidemia Risk Factors Are:: Total Cholesterol, Triglycerides, HDL, LDL Recommendations Include:: Lipid profile provided, Reviewed NCEP/ATP guidelines, Therapeutic Lifestyle Change dietary guidelines Dyslipidemia Response Code:: Patient communicates acknowledgment Overweight/Obesity Patient Overweight/Obesity Risk Factors Are:: Obesity - > or = 30 Recommendations Include:: Weight loss of 5-10%, Reduced calorie diet, Exercise 5-7 times/week Overweight/Obesity:: Patient communicates acknowledgment Hypertension Recommendations Include:: Maintain BP <130/85, DASH dietary guidelines, Decrease/maintain normal body weight, Moderation of ETOH Hypertension:: Patient communicates acknowledgment Heart Disease Patient Heart Disease Risk Factors Are:: Previous cardiac event Heart Disease Response Code:: Patient communicates acknowledgment Diabetes Patient Diabetes Risk Factors Are:: No documented hx of diabetes Metabolic Syndrome Patient Metabolic Syndrome Risk Factors Are [3 of 5]:: Fasting blood sugar > 100 mg/dL, Waist circumference > 35 [female] or 40 [male], High triglyceride >150, Hypertension, Low HDL <40 [male] or < 50 [female] Recommendations Include:: Reinforce compliance to risk factor modifications, Encouraged follow-up with Primary Care Physician Metabolic Syndrome Response Code:: Patient communicates acknowledgment Sedentary Patient Sedentary Risk Factors Are:: Lack of regular exercise Recommendations Include:: Aerobic exercise 5-7 times/week for 20-30 minutes continuously, Benefits of regular exercise, Discussed home walking program, Monitored Outpatient Cardiac Rehab Sedentary Response Code:: Patient communicates acknowledgment Stress Recommendations Include:: Identification of stressors, and assessment of coping skills, Stress management techniques Stress Response Code:: Patient communicates acknowledgment
--- NOTE | 2018-12-13 09:33 | CASEMGMT ---
RN CM Assessment Presentation: chest pain, PCI Intro role of CM and purpose of RN CM assessment to patient in room. Pt is awake, alert and able to participate in assessment. Demographics, PCP and Pharmacy verified. PCP: none. List of PCP's given to pt. He has PCP closer to his home town he would like. RN CM reviewed importance of having PCP, process of calling for appt, having insurance card available and they will request information and going to first appt. Pt states he understands and will call physician to set up in next few weeks. Specialists: Dr. Flood Preferred Pharmacy: [facility] Insurance: [employer] Prescription Benefit: yes LNOK: , Jeri Living Arrangements: Lives independently. Denies care needs. Transportation: drives DME: none HHC: none Patient DC goals: Home DC PLAN: Home on dc. Teresa DUMONTN RN ACM
--- NOTE | 2018-12-13 10:00 | EKG12_ITS ---
Test Reason : POST PCI Blood Pressure : / mmHG Vent. Rate : 064 BPM Atrial Rate : 064 BPM P-R Int : 198 ms QRS Dur : 088 ms QT Int : 426 ms P-R-T Axes : 036 043 093 degrees QTc Int : 439 ms Normal sinus rhythm ST & T wave abnormality, consider lateral ischemia Abnormal ECG Confirmed by AG BELLO, NGA ([id number]), book or script editor NAOMIE YEAGER ([id number]) on 12/25/2018 12:51:46 PM Referred By: Confirmed By:NGA LUONG MD
[2018-12-13] MEDS: Aspirin 81 MG TAB.CHEW PO (10:05)
[2018-12-13] MEDS: amLODIPine 5 MG Tablet PO (10:06)
[2018-12-13] MEDS: TICAGRELOR 90 MG TABLET PO (10:06)
[2018-12-13 10:37] LABS: Hematocrit 46.8 % (40-54); Hemoglobin 15.7 g/dl (13.0-16.5); Mean Corp Hgb Conc 33.5 g/gl (32-36); Mean Corpuscular Hgb 30.8 pg (27.0-32.0); Mean Corpuscular Volume 91.9 fL (80-94); Platelet Count 224 K/mm3 (150-450); RBC Distribution Width CV 13.3 % (11.6-14.6); RBC Distribution Width SD 44.6 fl (35.1-43.9); Red Blood Count 5.09 M/mm3 (4.6-6.2)
[2018-12-13 10:38] LABS: Scan Indicated on CBC? Y/N NO
--- NOTE | 2018-12-13 10:52 | PCM.DC ---
- Discharge Diagnoses Current Active Problems: Current Active and Chronic Problems (Last Updated 12/13/18 @ 09:48 by Rosalie Bhatt) Essential (primary) hypertension (Chronic) Hyperlipidemia (Chronic) Atherosclerosis of coronary artery of [place] heart without angina pectoris (Chronic) [id number] RCA w/ Integrity RX BMS 3.5 x 12 mm, Integrity RX BMS 2.5 x 14 mm, BMS-Prox RCA w/ Integrity RX BMS 3.5 x 18 mm 12/12/18 Syncope (Acute) You will use the following diet at home:: Cardiac Discharge Activity: Return to Normal Activity Call your doctor if you observe: Shortness of breath, Dizziness, Fainting spells, Chest pain Allergies/Adverse Reactions: Allergies No Known Allergies Allergy (Verified 02/21/16 07:34) Medications to take at Discharge Grape Seed Extract [Grape Seed] 50 mg PO DAILY 12/11/18 Multivit-Mins/Iron/Folic/Lycop [Centrum Men's Tablet] 1 tab PO DAILY 12/11/18 Amlodipine [Norvasc] 10 mg PO DAILY #30 tab 12/13/18 Aspirin [Aspirin, Baby] 81 mg PO DAILY@0800 #30 tab.chew 12/13/18 Atorvastatin Calcium [Lipitor] 80 mg PO QHS #30 tab 12/13/18 Metoprolol(XL)Succ [Toprol Xl (Beta Frankie)] 25 mg PO DAILY #30 tab 12/13/18 Ticagrelor [Brilinta] 90 mg PO BID #60 tab 12/13/18 The following prescriptions were given: Aspirin [Aspirin, Baby] 81 mg PO DAILY@0800 #30 tab.chew Transmission Status: [id number] Ticagrelor [Brilinta] 90 mg PO BID #60 tab Transmission Status: [facility]ending [id number] Atorvastatin Calcium [Lipitor] 80 mg PO QHS #30 tab Transmission Status: [facility]ending [id number] Amlodipine [Norvasc] 10 mg PO DAILY #30 tab Transmission Status: [facility]ending [id number] Metoprolol(XL)Succ [Toprol Xl (Beta Frankie)] 25 mg PO DAILY #30 tab Transmission Status: [id number] Primary Care Physician: Care Physician,No Primary [Primary Care Provider] - Please follow up with your Primary Care Physician in: 1 Week Test Results: Test results from this visit will be discussed in further detail at your follow-up appointment, if applicable. Please Follow Up With: Ac Flood MD When: 2-4 weeks Proposed Discharge Date: 12/13/18
--- NOTE | 2018-12-13 10:54 | PCM.DC.SUM ---
Discharge Date and Diagnosis Date of Admission: 12/11/18 Date of Discharge: 12/13/18 - Primary Discharge Diagnosis Active and Suspected Problems (Last Updated 12/13/18 @ 09:48 by Rosalie Bhatt) 1. CAD status post PCI to proximal and distal RCA (Hx of CABG in 1999) 2. Syncope, 2/2 #1 3. Hypertension 4. Hyperlipidemia 5. Obesity 6. Former tobacco use 7. CKD stage II - Secondary Discharge Diagnosis Chronic Problems (Last Updated 12/13/18 @ 09:48 by Rosalie Bhatt) Essential (primary) hypertension (Chronic) Hyperlipidemia (Chronic) Atherosclerosis of coronary artery of [place] heart without angina pectoris (Chronic) [id number] RCA w/ Integrity RX BMS 3.5 x 12 mm, Integrity RX BMS 2.5 x 14 mm, BMS-Prox RCA w/ Integrity RX BMS 3.5 x 18 mm 12/12/18 Hospital Course and Treatment Imaging Results: Diagnostic Data Chest X-Ray 12/11/18 19:15 IMPRESSION: There is cardiomegaly, mild pulmonary venous congestion Electronically Signed: Zhang Sánchez, at 20:39 EDT Tel , Service support , Dr. Flood- Cardiology Operations: None Procedures: 2-D Echocardiogram, Cardiac catheterization Summary of Care Provided: The patient is a 63 year old M admitted 12/11/2018 due to syncope. 1. CAD status post successful PCI with bare-metal stent to the proximal and distal RCA (History of CABG in 1999 with FABIAN to the LAD)-EKG without evidence of acute ischemia, T wave inversions in lateral leads which is unchanged from prior EKG. Cardiology consulted. Troponin negative. Echocardiogram with EF 53%, no regional wall motion abnormalities. Mild mitral valve insufficiency. Stress test abnormal. Patient underwent cardiac catheterization with PCI to proximal distal RCA. Continue aspirin indefinitely. Brilinta for a minimum of 30 days, ideally 1 year. High-dose statin. Initiated on low-dose beta-frankie. Follow-up with Dr. Flood in 2 to 4 weeks. Establish with primary care provider in follow-up within 1 week. 2. Syncope-suspected secondary to #1. Troponin negative. Orthostatic vitals negative. Chest x-ray with cardiomegaly, mild pulmonary venous congestion. Echocardiogram with EF 53%, no regional wall motion abnormalities. Mild mitral valve insufficiency. 3. Hypertension-initiated on amlodipine 10 mg daily and metoprolol XL 25 mg daily. 4. Hyperlipidemia-continue high-dose statin at discharge. 5. Obesity-encouraged diet and lifestyle modifications. 6. Former tobacco use-encouraged continued cessation. 7. Chronic kidney disease stage II-at baseline. General: Alert, Oriented x3, Cooperative HEENT: Atraumatic, PERRLA, EOMI, Normocephalic Neck: Supple, No JVD, Negative Carotid Bruits Lungs: Clear to auscultation, Normal air movement Cardiovascular: Regular rate, Regular Rhythm, Normal S1, Normal S2, No murmurs Abdomen: Bowel Sounds Present, Soft, Non Tender, Non-Distended Extremities: No clubbing, No cyanosis, No edema, Capillary Refill Less than 3 Seconds Skin: No rashes, No breakdown Musculoskeletal: No Tenderness to Palpation of Joints or Extremities Neurological: Cranial nerves II-XII grossly intact, Neuro grossly intact Psych/Mental Status: Normal Affect, Appropriate Patient seen and examined prior to discharge. Physical assessment as noted above. Patient is stable for discharge with follow up recommendations as noted above. This patient was seen by ARACELIS Garcia under the supervision of Dr. Schmidt. - Physical Exam Vital Signs Temp Pulse Resp BP Pulse Ox 98.1 F 76 19 H 142/106 H 93 12/13/18 03:00 12/13/18 06:00 12/13/18 06:00 12/13/18 06:00 12/13/18 06:00 Oxygen Flow Rate (L/min) 2 Oxygen Delivery Method Room Air Weight: 246 lb 0.574 oz Body Mass Index (BMI) 33.4 Orthostatic Vital Signs Start: 12/11/18 23:36 Freq: q24h Status: Active Protocol: Activity Type Activity Date Activity User E-Sign Co-Sign Detail Recorded Client Recorded Date Recorded By Document 12/11/18 23:15 CAD [id number] 12/11/18 23:37 CAD 12/11/18 23:15 Orthostatic Vitals Standing -Blood Pressure (90/60-120/80) 142/96 H -Extremity Use Left Arm -Pulse Rate (60-100) 84 Sitting -Blood Pressure (90/60-120/80) 149/91 H -Extremity Use Left Arm -Pulse Rate (60-100) 65 Lying -Blood Pressure (90/60-120/80) 151/83 H -Extremity Use Left Arm -Pulse Rate (60-100) 71 Intake and Output for Last 24 Hours 12/11/18 12/12/18 12/13/18 23:59 23:59 23:59 Intake Total 1761 / 1761 705 / 705 Output Total 2275 / 2275 1100 / 1100 Balance -514 / -514 -395 / -395 Laboratory Tests Past 24 Hrs 12/12/18 12/12/18 12/12/18 12:45 18:35 18:35 WBC RBC Hgb Hct MCV MCH MCHC RDW RDW Differential Plt Count MPV Sodium 140 Potassium 3.6 Chloride 106 Carbon Dioxide 25.0 Anion Gap 9 BUN 10 Creatinine 0.99 Estim Creat Clear Calc 83.83 Est GFR (MDRD) Af Amer 98 Est GFR (MDRD) Non-Af 81 BUN/Creatinine Ratio 10.1 Glucose 121 H Hemoglobin A1c 6.2 Calcium 8.9 Magnesium 2.1 B-Natriuretic Peptide 8.8 12/13/18 12/13/18 03:05 03:05 WBC 11.0 RBC 5.09 Hgb 15.7 Hct 46.8 MCV 91.9 MCH 30.8 MCHC 33.5 RDW 13.3 RDW Differential 44.6 H Plt Count 224 MPV 12.0 Sodium 143 Potassium 3.6 Chloride 109 H Carbon Dioxide 23.0 Anion Gap 11 BUN 10 Creatinine 1.10 Estim Creat Clear Calc 74.46 Est GFR (MDRD) Af Amer 87 Est GFR (MDRD) Non-Af 72 BUN/Creatinine Ratio 9.1 L Glucose 126 H Hemoglobin A1c Calcium 8.8 Magnesium B-Natriuretic Peptide Discharge Diet: Low fat/ Low Cholesterol, Carb Control Diet Discharge Activity: Return to Normal Activity Call your doctor if you observe: Shortness of breath, Dizziness, Fainting spells, Chest pain Home Medications: Medications to take at Discharge Grape Seed Extract [Grape Seed] 50 mg PO DAILY 12/11/18 Multivit-Mins/Iron/Folic/Lycop [Centrum Men's Tablet] 1 tab PO DAILY 12/11/18 Amlodipine [Norvasc] 10 mg PO DAILY #30 tab 12/13/18 Aspirin [Aspirin, Baby] 81 mg PO DAILY@0800 #30 tab.chew 12/13/18 Atorvastatin Calcium [Lipitor] 80 mg PO QHS #30 tab 12/13/18 Metoprolol(XL)Succ [Toprol Xl (Beta Frankie)] 25 mg PO DAILY #30 tab 12/13/18 Ticagrelor [Brilinta] 90 mg PO BID #60 tab 12/13/18 Following Prescrptions Were Given to Patient: Aspirin [Aspirin, Baby] 81 mg PO DAILY@0800 #30 tab.chew Transmission Status: [id number] Ticagrelor [Brilinta] 90 mg PO BID #60 tab Transmission Status: [id number] Atorvastatin Calcium [Lipitor] 80 mg PO QHS #30 tab Transmission Status: [id number] Amlodipine [Norvasc] 10 mg PO DAILY #30 tab Transmission Status: [id number] Metoprolol(XL)Succ [Toprol Xl (Beta Frankie)] 25 mg PO DAILY #30 tab Transmission Status: [id number] Primary Care Physician: Care Physician,No Primary [Primary Care Provider] - Please follow up with your Primary Care Physician in: 1 Week Please Follow Up With: Ac Flood MD When: 2-4 weeks Disposition: Home Minutes spent on discharge:: 35 Patient Condition:: Stable Medical Necessity - Tobacco Use Smoking Status: Former smoker Meaningful Use Info Meaningful Use Diagnoses (Choose all that apply): None applicable
== END 2018-12-13 11:30 | disposition home or self-care (01) ==
LOC: ED 19:35 → PCU 21:18 → ICU 12-12 14:18
PROVIDERS: Nurse Practitioner Family; Admitting Provider Hospitalist; Emergency Provider Emergency Medicine; Visit Provider Internal Medicine
DX: I25.10 Atherosclerotic heart disease of native coronary artery without angina pectoris (principal); R55 Syncope and collapse; E78.5 Hyperlipidemia, unspecified; I12.9 Hypertensive chronic kidney disease with stage 1 through stage 4 chronic kidney disease, or unspecified chronic kidney disease; N18.2 Chronic kidney disease, stage 2 (mild); R20.0 Anesthesia of skin; E87.6 Hypokalemia; E66.9 Obesity, unspecified; Z95.1 Presence of aortocoronary bypass graft; Z68.32 Body mass index [BMI] 32.0-32.9, adult; Z71.3 Dietary counseling and surveillance; Z91.14 Patient's other noncompliance with medication regimen; Z79.899 Other long term (current) drug therapy; Z79.82 Long term (current) use of aspirin; Z87.891 Personal history of nicotine dependence
CPT/HCPCS: 36415; 71045; 78452; 80048; 80061; 83036; 83735; 83880; 84484; 85025; 85027; 85379; 92928; 93005; 93017; 93306; 93459; 96361; 96374; 97802; 99152; 99153; 99218; 99285; A9500; J7030; Q9967; A4216; C1725; C1760; C1769; C1876; C1887; G0378; J1327; J2405

== ENCOUNTER → 2020-09-16 | Outpatient (CLI) | payer MEDICARE, SELFPAY ==
[2020-09-16 14:05] VITALS: BMI 32.8
[2020-09-16 15:36] LABS: AST(SGOT) 30 U/L (15-37); Alanine Aminotransfer ALT/SGPT 54 U/L (16-61); Albumin, Serum 4.2 g/dL (3.2-5.0); Alkaline Phosphatase 110 U/L (45-117); Bilirubin, Direct 0.21 mg/dL (0.00-0.30); Cholesterol 175 mg/dL (200); Globulin 3.5 g/dL (2.2-4.2); High Density Lipoprotein 39 mg/dL; Protein, Total 7.7 g/dL (6.4-8.2); Triglycerides 265 mg/dL; Very Low Density Lipoprotein 53 mg/dL (5-40)
== END | disposition home or self-care (01) ==
PROVIDERS: Referring Provider Internal Medicine Cardiovascular Disease; Visit Provider Internal Medicine Cardiovascular Disease
DX: I25.10 Atherosclerotic heart disease of native coronary artery without angina pectoris (principal); E78.5 Hyperlipidemia, unspecified
CPT/HCPCS: 80061; 80076

== ENCOUNTER 2021-12-28 20:35 | Emergency (ER) | payer MEDICARE, MEDICAID, SELFPAY ==
[2021-12-28 20:36] VITALS: BP 133/92; PULSE 123; RESP 18; TEMP 39; O2SAT 97; BMI 33.7
--- NOTE | 2021-12-28 21:02 | EX.ED.DYSGE1 ---
HPI History of Present Illness Chief Complaint: Fever Informant: patient Onset/Context/Timing Onset: Days Context: Gradual Onset Current Severity: Mild Maximum Severity: Moderate Narrative Narrative: Patient presents secondary to fever. He states has been laying on the couch last couple days with fever and mild body aches. He has noted urinary frequency and urgency. He states that soon as he feels that he has to go to the bathroom he stands up and cannot make it to the bathroom in time. He has had some mild back pain. He denies history of back problems, surgeries, injections. He states his urine is dark in color. He has not had significant cough or congestion. He has not taken anything today for fever. [facility] Medical History (Updated 12/28/21 @ 22:[address] Darby Rea MD) Atherosclerosis of coronary artery of [place] heart without angina pectoris Essential (primary) hypertension Hyperlipidemia Obesity Pre-syncope Ureterolithiasis Home Medications aspirin 81 mg chewable tablet 81 mg PO DAILY@0800 ##30 12/13/18 [Rx Last Taken Unknown] clopidogrel 75 mg tablet 75 mg PO DAILY #90 tabs 09/09/21 [Rx Last Taken Unknown] atorvastatin 80 mg tablet 80 mg PO QHS #90 tabs 10/17/21 [Rx Last Taken Unknown] amlodipine 10 mg tablet 10 mg PO DAILY #90 tabs 12/07/21 [Rx Last Taken Unknown] lisinopril 40 mg tablet 40 mg PO DAILY #90 tabs 12/07/21 [Rx Last Taken Unknown] metoprolol succinate 25 mg tablet,extended release 24 hr 25 mg PO DAILY #90 tabs 12/07/21 [Rx Last Taken Unknown] ciprofloxacin HCl 500 mg tablet (Cipro) 500 mg PO BID #14 tabs 12/28/21 [Rx Last Taken Unknown] Allergy/AdvReac Type Severity Reaction Status Date / Time No Known Allergies Allergy Verified 12/28/21 20:36 Family History Mother Heart disease Father Heart disease Surgical History H/O coronary artery bypass surgery (1999) History of coronary artery stent placement (12/12/18) History of lithotripsy Social History Smoking Status: Never smoker ROS ROS ED Constitutional Constitutional ED: Reports fever(s); Denies chills Eyes Eyes: Denies change in vision or discharge from eye(s) ENT ENT ED: Denies discharge from eye(s), rhinorrhea or sore throat Cardiovascular Cardiovascular: Denies chest pain or palpitations Respiratory/Chest Respiratory/Chest: Denies cough or dyspnea Gastrointestinal Gastrointestinal: Denies abdominal pain, diarrhea, nausea or vomiting Genitourinary Genitourinary ED: Reports urinary frequency and other Details: Urgency ; Denies difficulty urinating or dysuria Musculoskeletal Musculoskeletal: Reports back pain and myalgias; Denies extremity pain Integumentary Denies Abrasions or rash Neurologic Neurologic: Reports weakness; Denies headache(s) Psychiatric Psychiatric: Denies anxiety or depression Allergic/Immunologic Allergic/Immunologic ED: Denies lip swelling or urticaria EXAM Physical Exam Const Vital Signs: 12/28/21 20:36 12/28/21 20:46 12/28/21 21:40 Temperature 102.2 F H 101 F H Temperature Source Temporal Temporal Pulse Rate 123 H 110 H Respiratory Rate 18 15 Respiratory Effort Normal Non-Labored Respiratory Pattern Normal Blood Pressure 133/92 H 135/98 H Blood Pressure Mean 105 110 Pulse Ox 97 98 Oxygen Delivery Method Room Air Room Air 12/28/21 22:37 Temperature 99.8 F H Temperature Source Oral Pulse Rate 104 H Respiratory Rate 17 Respiratory Effort Respiratory Pattern Blood Pressure 151/79 H Blood Pressure Mean 103 Pulse Ox 95 Oxygen Delivery Method Room Air Positive well nourished and well developed General Appearance ED: well developed HEENT Reports normocephalic and head/scalp atraumatic Eyes PERRL and EOMs intact bilaterally Neck supple Chest Wall inspection of chest normal and palpation of chest normal Resp normal respiratory effort and clear to auscultation bilaterally Cardio regular rhythm Rate: tachycardic GI non-tender Auscultation: hypoactive bowel sounds Palpation: soft Extremity normal to inspection Neuro oriented x3 and no sensory deficits noted Sensorium / Orientation: alert Motor Exam: strength 5/5 throughout Psych mental status grossly normal Skin no rashes or lesions noted MDM MDM MDM Narrative Medical decision making narrative: Patient given Tylenol for fever. Cultures obtained. Lab work and urinalysis ordered along with COVID test. Lab Data Attestation: I reviewed the patient's lab results. Labs: Laboratory Results - last 24 hr 12/28/21 12/28/21 12/28/21 20:50 20:50 20:50 WBC Cancelled Corrected WBC Cancelled RBC Cancelled Hgb Cancelled Hct Cancelled MCV Cancelled MCH Cancelled MCHC Cancelled RDW Std Deviation Cancelled RDW Coeff of Lien Cancelled Plt Count Cancelled MPV Cancelled Immature Gran % (Auto) Cancelled Neut % (Auto) Cancelled Lymph % (Auto) Cancelled [place] % (Auto) Cancelled Eos % (Auto) Cancelled Baso % (Auto) Cancelled Absolute Neuts (auto) Cancelled Absolute Lymphs (auto) Cancelled Total Counted Cancelled Neutrophils % (Manual) Cancelled Band Neutrophils % Cancelled Lymphocytes % (Manual) Cancelled Monocytes % (Manual) Cancelled Eosinophils % (Manual) Cancelled Basophils % (Manual) Cancelled Metamyelocytes % Cancelled Myelocytes % Cancelled Promyelocytes % Cancelled Blast Cells % Cancelled Plasma Cell % (Manual) Cancelled Other Cells % Cancelled Nucleated RBC % Cancelled Nucleated RBCs/100 WBC Cancelled Differential Comment Cancelled Diff Path Review Cancelled Hypersegmented Neuts Cancelled Atypical Lymphocytes Cancelled Reactive Lymphocytes Cancelled Smudge Cells Cancelled Toxic Granulation Cancelled Toxic Vacuolation Cancelled Dohle Bodies Cancelled Lev Rods Cancelled Platelet Estimate Cancelled Plt Morphology Comment Cancelled RBC Morphology Cancelled Polychromasia Cancelled Hypochromasia Cancelled Poikilocytosis Cancelled Basophilic Stippling Cancelled Anisocytosis Cancelled Microcytosis Cancelled Macrocytosis Cancelled Spherocytes Cancelled Sickle Cells Cancelled Target Cells Cancelled Tear Drop Cells Cancelled Ovalocytes Cancelled Stomatocytes Cancelled [place] Bodies Cancelled Faye Cells Cancelled Bite Cells Cancelled Crenated Cell Cancelled Acanthocytes (Spur) Cancelled Rouleaux Cancelled Schistocytes Cancelled Sodium 137 Potassium 3.3 L Chloride 105 Carbon Dioxide 24.0 Anion Gap 8 BUN 11 Creatinine 1.08 Estim Creat Clear Calc 72.85 Est GFR (MDRD) Af Amer 88 Est GFR (MDRD) Non-Af 73 BUN/Creatinine Ratio 10.2 Glucose 135 H Lactic Acid 2.0 Calcium 9.2 Urine Color Urine Clarity Urine pH Ur Specific [place] Urine Protein Urine Glucose (UA) Urine Ketones Urine Occult Blood Urine Nitrite Urine Bilirubin Urine Urobilinogen Ur Leukocyte Esterase Urine RBC Urine WBC Ur Squamous Epith Cells Urine Bacteria Urine Mucus 12/28/21 12/28/21 21:30 21:35 WBC 13.3 H Corrected WBC RBC 4.72 Hgb 14.2 Hct 42.4 MCV 89.8 MCH 30.1 MCHC 33.5 RDW Std Deviation 44.3 H RDW Coeff of Lien 13.4 Plt Count 144 L MPV 11.2 Immature Gran % (Auto) 0.700 Neut % (Auto) 86.7 H Lymph % (Auto) 4.5 L [place] % (Auto) 7.9 Eos % (Auto) 0.0 Baso % (Auto) 0.2 Absolute Neuts (auto) 11.5 H Absolute Lymphs (auto) 0.60 L Total Counted Neutrophils % (Manual) Band Neutrophils % Lymphocytes % (Manual) Monocytes % (Manual) Eosinophils % (Manual) Basophils % (Manual) Metamyelocytes % Myelocytes % Promyelocytes % Blast Cells % Plasma Cell % (Manual) Other Cells % Nucleated RBC % 0 Nucleated RBCs/100 WBC Differential Comment SCANNED Diff Path Review Hypersegmented Neuts Atypical Lymphocytes Reactive Lymphocytes Smudge Cells Toxic Granulation Toxic Vacuolation Dohle Bodies Lev Rods Platelet Estimate Plt Morphology Comment RBC Morphology Polychromasia Hypochromasia Poikilocytosis Basophilic Stippling Anisocytosis Microcytosis Macrocytosis Spherocytes Sickle Cells Target Cells Tear Drop Cells Ovalocytes Stomatocytes [place] Bodies [place] Cells Bite Cells Crenated Cell Acanthocytes (Spur) Rouleaux Schistocytes Sodium Potassium Chloride Carbon Dioxide Anion Gap BUN Creatinine Estim Creat Clear Calc Est GFR (MDRD) Af Amer Est GFR (MDRD) Non-Af BUN/Creatinine Ratio Glucose Lactic Acid Calcium Urine Color Yellow Urine Clarity Sl. Cloudy Urine pH 6.0 Ur Specific [place] 1.015 Urine Protein 100 H Urine Glucose (UA) Normal Urine Ketones Negative Urine Occult Blood 150 H Urine Nitrite Positive H Urine Bilirubin Negative Urine Urobilinogen 8 H Ur Leukocyte Esterase 500 H Urine RBC 10-25 SEEN Urine WBC 25-50 SEEN Ur Squamous Epith Cells 0-5 SEEN Urine Bacteria 4+ Urine Mucus 0 SEEN Radiography Chest X-Ray - ED: 1 View, Read by ED Physician, Normal, Heart, Lungs and Mediastinum Diagnostic Testing: Clinical Impression(s) from Imaging Studies Chest X-Ray 12/28/21 21:08 IMPRESSION: There are no acute findings. Electronically Signed: Zia Joseph MD at 21:33 EDT , Treatment and Re-Evaluation Narrative: On repeat evaluation patient resting comfortably. Repeat temperature is 99.8. Lab work reveals a white count of 13.3 with 86% neutrophils. Chemistry studies unremarkable with normal renal function. Lactic acid is 2. Urinalysis does reveal 4+ bacteria with 25-50 white cells and positive nitrites. Blood and urine cultures have been sent. Patient be given a dose of IV Rocephin as well as ibuprofen. Once antibiotic is infused patient be discharged with prescription for 7 additional days of Cipro as he has had some back pain and this will help cover Pyelo. Return instructions have been provided. Discharge Plan Triage Chief Complaint: Fever ED Provider: Darby Rea Dx/Rx/DC Orders Clinical Impression: Pyelonephritis, Fever Instructions: ED Pyelonephritis, Male (Adult) Prescriptions: New ciprofloxacin HCl [Cipro] 500 mg tablet 500 mg PO BID Qty: 14 0RF No Action aspirin 81 MG tablet,chewable 81 mg PO DAILY@0800 Qty: 30 0RF clopidogrel 75 mg tablet 75 mg PO DAILY Qty: 90 3RF atorvastatin 80 mg tablet 80 mg PO QHS Qty: 90 3RF amlodipine 10 mg tablet 10 mg PO DAILY Qty: 90 4RF metoprolol succinate 25 mg tablet extended release 24 hr 25 mg PO DAILY Qty: 90 4RF lisinopril 40 mg tablet 40 mg PO DAILY Qty: 90 6RF Primary Care Provider: Care Physician,No Primary Referrals: Nic Todd MD [STAFF PHYSICIAN] - As Needed Care Physician,No Primary [Primary Care Provider] - Disposition Disposition: Home, Self Care
[2021-12-28] MEDS: Acetaminophen 500 MG Tablet 1000 MG PO (21:06)
[2021-12-28] MEDS: 0.9% Normal Saline 1,000 ML 1000 ML IV (21:07)
--- NOTE | 2021-12-28 21:08 | RAD_ITS ---
STUDY: X-RAY CHEST REASON FOR EXAM: Male, 66 years old. fever TECHNIQUE: XR Chest 1 View COMPARISON: 12.11.18 FINDINGS: There is no demonstrated pleural abnormality. Normal size heart. Normal mediastinum and rock. Normal visualized pulmonary arteries. Normal visualized aortic arch and descending thoracic aorta. There are diffuse degenerative changes of the visualized thoracic spine. There is degenerative osteoarthritis of the bilateral shoulders. There is no demonstrated abnormality of the visualized soft tissue structures of the upper abdomen. RAD/Chest 1 View (Portable) IMPRESSION: There are no acute findings. Electronically Signed: Zia Joseph MD at 21:33 EDT ,
[2021-12-28 21:35] LABS: Anion Gap 8 (5-15); BUN 11 mg/dL (7-18); BUN/Creat Ratio 10.2 RATIO (10-20); Calcium,Total 9.2 mg/dL (8.5-10.1); Chloride 105 mmol/L (98-107); Creatinine, Serum 1.08 mg/dL (0.70-1.30); EST Glomerular Filtration Rate 73 mL/min (>60); Est Glom Filt Rate - Afr Amer 88 mL/min (>60); Estimated Creatinine Clearance 72.85 ml/min; Glucose 135 mg/dL (74-106); Potassium 3.3 mmol/L (3.5-5.1); Sodium Level 137 mmol/L (136-145)
[2021-12-28 21:40] VITALS: BP 135/98; PULSE 110; RESP 15; TEMP 38.3; O2SAT 98
[2021-12-28 21:43] LABS: Mucous, Urine 0 SEEN /hpf (<or=2+)
[2021-12-28 21:45] LABS: Absolute Neutrophil Count 11.5 X10^3/uL (2.0-7.7); Basophil# 0.03 X10^3/uL; Basophil% 0.2 % (0-1); Hematocrit 42.4 % (40-54); Hemoglobin 14.2 g/dL (13.0-16.5); Lymphocyte % 4.5 % (19-41); Mean Corp Hgb Conc 33.5 g/dL (32-36); Mean Corpuscular Hgb 30.1 pg (27.0-32.0); Mean Corpuscular Volume 89.8 fL (80-94); Mean Platelet Vol. 11.2 fl (6.2-12.0); Monocyte# 1.05 X10^3/uL; Monocyte% 7.9 % (0-10); NRBC Flagged by Analyzer 0 % (0-5); Neutrophil # 11.53 X10^3/uL (2.7-7.7); Neutrophil % 86.7 % (47-70); POSITIVE DIFFERENTIAL YES; Platelet Count 144 K/mm3 (150-450); RBC Distribution Width CV 13.4 % (11.6-14.6); RBC Distribution Width SD 44.3 fl (35.1-43.9); Red Blood Count 4.72 M/mm3 (4.6-6.2); White Blood Count 13.3 K/mm3 (4.4-11.0)
[2021-12-28 21:55] LABS: Differential Indicated SCAN CRITERIA MET
[2021-12-28 22:08] LABS: Color, Urine Yellow (Yellow); Glucose, Dipstick Normal (Normal); Ketone-Dipstick Negative (Negative); Leukocyte Esterase-Dipstick 500 /ul (Negative); Nitrite-Dipstick Positive (Negative); Occult Blood-Urine 150 /ul (Negative); Protein-Dipstick 100 mg/dl (Negative); Specific Gravity, Urine 1.015 (1.002-1.030); Urine Bilirubin Dipstick Negative (Negative); Urine Clarity Sl. Cloudy (Clear); Urine Urobilinogen 8 mg/dl (Normal)
[2021-12-28 22:23] LABS: Differential Comment SCANNED
[2021-12-28 22:35] LABS: Bacteria 4+ /hpf (None Seen); Red Blood Cells-Urine 10-25 SEEN /hpf (0-5); Squamous Epithelial Cells - UA 0-5 SEEN /hpf (0-5); White Blood Cells 25-50 SEEN /hpf (0-5)
[2021-12-28] MEDS: 0.9% Normal Saline 1,000 ML 150 ML IV (22:36)
[2021-12-28 22:37] VITALS: BP 151/79; PULSE 104; RESP 17; TEMP 37.7; O2SAT 95
[2021-12-28] MEDS: Ceftriaxone 1 GM/50 ML BAG IV (22:52)
[2021-12-28] MEDS: Ibuprofen 600 MG Tablet PO (22:55)
[2021-12-28 23:25] VITALS: BP 132/93; PULSE 96; RESP 18; O2SAT 95
[2021-12-29 01:03] LABS: Reflex Lactate? Y
== END 2021-12-28 23:36 | disposition home or self-care (01) ==
PROVIDERS: Emergency Provider Emergency Medicine; Visit Provider Emergency Medicine
DX: N12 Tubulo-interstitial nephritis, not specified as acute or chronic (principal); I25.10 Atherosclerotic heart disease of native coronary artery without angina pectoris; I10 Essential (primary) hypertension; E78.5 Hyperlipidemia, unspecified; E66.9 Obesity, unspecified; Z79.82 Long term (current) use of aspirin; Z79.899 Other long term (current) drug therapy
CPT/HCPCS: 36415; 71045; 80048; 81001; 83605; 85025; 87040; 87086; 87088; 87186; 87811; 96365; 99285; J7030; A4216

== ENCOUNTER → 2023-11-01 | Outpatient (CLI) | payer MEDICARE, MEDICAID, SELFPAY ==
[2023-11-01 17:19] LABS: Absolute Lymphocyte Count 1.67 X10^3/uL (0.83-4.51); Absolute Neutrophil Count 5.2 X10^3/uL (2.0-7.7); Basophil# 0.06 X10^3/uL; Basophil% 0.8 % (0-1); Eosinophil# 0.26 X10^3/uL; Eosinophils% 3.3 % (0-5); Hematocrit 45.6 % (40-54); Hemoglobin 15.1 g/dL (13.0-16.5); Lymphocyte # 1.67 X10^3/ul (0.83-4.51); Lymphocyte % 21.2 % (19-41); Mean Corp Hgb Conc 33.1 g/dL (32-36); Mean Corpuscular Hgb 30.9 pg (27.0-32.0); Mean Corpuscular Volume 93.3 fL (80-94); Mean Platelet Vol. 11.3 fl (6.2-12.0); Monocyte# 0.68 X10^3/uL; Monocyte% 8.6 % (0-10); NRBC Flagged by Analyzer 0 % (0-5); Neutrophil # 5.16 X10^3/uL (2.7-7.7); Neutrophil % 65.5 % (47-70); Platelet Count 219 K/mm3 (150-450); RBC Distribution Width SD 47.8 fl (35.1-43.9); Red Blood Count 4.89 M/mm3 (4.6-6.2); White Blood Count 7.9 K/mm3 (4.4-11.0)
[2023-11-01 17:37] LABS: ALB/GLOB Ratio 1.2 RATIO (0.9-2.4); AST(SGOT) 30 U/L (15-37); Alanine Aminotransfer ALT/SGPT 33 U/L (16-61); Albumin, Serum 4.3 g/dL (3.2-5.0); Alkaline Phosphatase 91 U/L (45-117); Anion Gap 5 (5-15); BUN 14 mg/dL (7-18); BUN/Creat Ratio 14.1 RATIO (10-20); Calcium,Total 9.3 mg/dL (8.5-10.1); Chloride 104 mmol/L (98-107); Cholesterol 244 mg/dL (200); EST Glomerular Filtration Rate 79 mL/min (>60); Est Glom Filt Rate - Afr Amer 96 mL/min (>60); Globulin 3.5 g/dL (2.2-4.2); Glucose 103 mg/dL (74-106); High Density Lipoprotein 47 mg/dL; Potassium 3.8 mmol/L (3.5-5.1); Protein, Total 7.8 g/dL (6.4-8.2); Sodium Level 136 mmol/L (136-145); Triglycerides 329 mg/dL; Very Low Density Lipoprotein 66 mg/dL (5-40)
[2023-11-01 17:43] LABS: BNP,B-Type NATRIURETIC PEPTIDE 8.4 pg/mL (0-100)
== END | disposition home or self-care (01) ==
PROVIDERS: Referring Provider Nurse Practitioner Gerontology; Visit Provider Nurse Practitioner Gerontology
DX: I25.10 Atherosclerotic heart disease of native coronary artery without angina pectoris (principal); I10 Essential (primary) hypertension; R06.09 Other forms of dyspnea
CPT/HCPCS: 36415; 80053; 80061; 83880; 85025

== ENCOUNTER → 2024-12-31 | Outpatient (CLI) | payer MEDICARE, SELFPAY ==
--- NOTE | 2024-12-31 07:17 | ECHOD_ITS ---
Reason For Study Reason For Study: DYSPNEA Procedure This was a 2D Doppler, Color Flow transthoracic echocardiogram. Myocardial strain analysis was performed in this exam to aid in the assessment of cardiac function. Exam performed in department. Left Ventricle Normal LV size. Moderate concentric left ventricular hypertrophy. The left ventricular ejection fraction is 55 %. Stage 1 diastolic dysfunction. No regional wall motion abnormalities noted. Right Ventricle Normal RV size. Normal systolic function. Atria Normal left atrium. Normal right atrium. Mitral Valve Normal mitral valve. Trivial eccentric mitral valve insufficiency. Tricuspid Valve Normal tricuspid valve. Aortic Valve Trisinus/trileaflet aortic valve. Great Vessels Normal aortic root. The pulmonary artery is normal size. Inferior vena cava collapse with respiration. Pericardium/Pleural No pericardial effusion. MMode/2D Measurements & Calculations LVIDd: 4.0 cm IVSd: 1.7 cm LVOT diam: 2.3 cm LVIDs: 2.4 cm LVPWd: 1.4 cm LVOT area: 4.2 cm2 RVDd: 4.1 cm FS: 40.1 % asc Aorta Diam: 3.6 cm LAV(MOD-bp): 62.4 ml LVAd ap4: 27.0 cm2 LAV(MOD-bp) Indexed: 25.4 ml/m2 LVLd ap4: 9.4 cm LAV(MOD-sp2): 60.9 ml EDV(MOD-sp4): 65.4 ml LAV(MOD-sp4): 59.2 ml EDV(sp4-el): 65.6 ml LVAs ap4: 16.3 cm2 LVLs ap4: 7.5 cm ESV(MOD-sp4): 30.6 ml ESV(sp4-el): 29.9 ml EF(MOD-sp4): 53.2 % EF(sp4-el): 54.4 % SV(MOD-sp4): 34.8 ml SV(MOD-sp2): 31.4 ml LVAd ap2: 25.7 cm2 LVLd ap2: 9.6 cm SI(MOD-sp4): 14.2 ml/m2 SI(MOD-sp2): 12.8 ml/m2 EDV(MOD-sp2): 58.0 ml EDV(sp2-el): 58.3 ml LVAs ap2: 15.6 cm2 LVLs ap2: 8.0 cm ESV(MOD-sp2): 26.6 ml ESV(sp2-el): 25.9 ml EF(MOD-sp2): 54.2 % SV(sp4-el): 35.7 ml Ao sinus diam: 3.[address] Junction: 3.3 cm LA A4 area: 19.5 cm2 LA dimension(2D): 4.2 cm RA A4 area: 11.2 cm2 TAPSE: 1.7 cm Time Measurements MV dec time: 0.32 sec Doppler Measurements & Calculations MV E max papa: 40.7 cm/sec Lat Peak E' Papa: 10.4 cm/sec Med Peak E' Papa: 6.2 cm/sec MV A max papa: 53.6 cm/sec E/E' lat: 3.9 E/E' med: 6.6 MV E/A: 0.76 Ao V2 max: 88.6 cm/sec LV V1 max: 69.0 cm/sec MV dec slope: 129.2 cm/sec2 Ao max P.1 mmHg LV V1 max P.9 mmHg Ao V2 mean: 70.2 cm/sec LV V1 mean P.4 mmHg Ao mean P.1 mmHg LV V1 mean: 57.2 cm/sec Ao V2 VTI: 18.8 cm LV V1 VTI: 15.5 cm AV (velocity ratio): 0.82 ROBB(I,D): 3.4 cm2 ROBB(V,D): 3.3 cm2 SV(LVOT): 64.8 ml PA V2 max: 63.9 cm/sec ECHO/Echo Complete Interpretation Summary Normal LV size. The left ventricular ejection fraction is 55 %. Stage 1 diastolic dysfunction. The global longitudinal strain is moderately abnormal. The global longitudinal strain = -13.2% (abnormal). Ordering Physician: Melissa Alegre Referring Physician: Melissa Alegre Performed By: Tracey Hernandez RDCS
--- NOTE | 2024-12-31 17:50 | STRESSREP_ITS ---
Stress Test Report Pharmacologic myocardial perfusion stress test. 69-year-old man with a history of coronary artery disease with shortness of breath and fatigue Resting EKG demonstrates sinus rhythm with a rate of 69 bpm. Resting blood pressure is 118/92 mmHg. 0.4 mg of regadenoson was infused per usual protocol followed by rapid intravenous saline flush injection. Continuous EKG monitoring was performed. The maximum heart rate was 94 bpm which was 62% of max impacted heart rate the maximum workload was 1 metabolic equivalent. At rest there were no ST or T wave changes noted to suggest ischemia and at peak infusion nonspecific ST changes were noted which did not meet the criteria for ischemia. No clinical angina is noted. The final blood pressure was 120/96 mmHg. Myocardial perfusion protocol. 14.8 mCi of technetium 99m sestamibi was injected at rest. 0.4 mg of regadenoson was infused per usual protocol. At peak infusion 45 mCi of pankaj hnetium 99m sestamibi was injected stress images were obtained stress and rest images were reconstructed and compared in the short axis vertical long and horizontal long axis. Gated images were also obtained. Perfusion SPECT analysis: Review of the stress images demonstrate normal uptake of tracer noted in all areas of the myocardium. The resting images similar demonstrated normal uptake of tracer noted in all areas of the myocardium. No areas of reversibility are noted to suggest ischemia and no previous infarct is noted. Gated SPECT analysis: The gated ejection fraction is 60%. Conclusion: Normal pharmacologic myocardial perfusion stress test. Preserved ejection fraction.
== END | disposition home or self-care (01) ==
PROVIDERS: Referring Provider Nurse Practitioner Gerontology; Visit Provider Nurse Practitioner Gerontology
DX: I25.10 Atherosclerotic heart disease of native coronary artery without angina pectoris (principal); Z95.5 Presence of coronary angioplasty implant and graft
CPT/HCPCS: 78452; 93017; 93306; A9500; A4216; J2785

== ENCOUNTER → 2025-01-02 | Outpatient (CLI) | payer MEDICARE, SELFPAY ==
[2025-01-02 12:53] LABS: Hematocrit 40.6 % (40-54); Hemoglobin 13.6 g/dL (13.0-16.5); Immature Granulocytes Count 0.020 X10^3/uL (0.0-0.0); Mean Corp Hgb Conc 33.5 g/dL (32-36); Mean Corpuscular Volume 94.9 fL (80-94); Mean Platelet Vol. 11.1 fl (6.2-12.0); NRBC Flagged by Analyzer 0 % (0-5); Platelet Count 182 K/mm3 (150-450); RBC Distribution Width CV 14.7 % (11.6-14.6); RBC Distribution Width SD 51.3 fl (35.1-43.9); Red Blood Count 4.28 M/mm3 (4.6-6.2); White Blood Count 7.2 K/mm3 (4.4-11.0)
[2025-01-02 13:53] LABS: AST(SGOT) 71 U/L (<=37); Alanine Aminotransfer ALT/SGPT 38 U/L (<=46); Albumin, Serum 4.6 g/dL (3.4-4.8); Alkaline Phosphatase 78 U/L (40-129); Anion Gap 11 (5-15); BUN 19 mg/dL (4-19); BUN/Creat Ratio 15.2 RATIO (10-20); Bilirubin, Direct 0.32 mg/dL (0.00-0.30); Calcium,Total 10.1 mg/dL (7.6-11.0); Carbon Dioxide 26.3 mmol/L (21.0-32.0); Chloride 101 mmol/L (98-108); Cholesterol 239 mg/dL (<=200); Globulin 3.0 g/dL (2.2-4.2); Glucose 101 mg/dL (70-99); Low Density Lipoprotein Calc. 141 mg/dL; Potassium 4.1 mmol/L (3.3-5.1); Pro- Brain NATRIURETIC PEPTIDE 55 pg/mL (<=900); Triglycerides 272 mg/dL; Very Low Density Lipoprotein 54 mg/dL (5-40); cholesterol:hdl ratio screen 5.49
== END | disposition home or self-care (01) ==
LOC: LAB 12:26
PROVIDERS: Referring Provider Nurse Practitioner Gerontology; Visit Provider Nurse Practitioner Gerontology
DX: E78.5 Hyperlipidemia, unspecified (principal); R06.02 Shortness of breath; R53.83 Other fatigue
CPT/HCPCS: 36415; 80048; 80061; 80076; 83880; 84443; 85025

== ENCOUNTER 2025-01-07 19:57 | Outpatient (CLI) | payer MEDICARE, SELFPAY | END 2025-01-07 23:59 | disposition home or self-care (01) | LOC: SL 19:57 | PROVIDERS: Referring Provider Nurse Practitioner Gerontology; Visit Provider Nurse Practitioner Gerontology | DX: G47.33 Obstructive sleep apnea (adult) (pediatric) (principal) | CPT/HCPCS: 95811 ==

== ENCOUNTER → 2025-01-13 | Outpatient (CLI) | payer MEDICARE, SELFPAY ==
[2025-01-13 17:51] LABS: Free T3 0.7 pg/mL (2.18-3.98)
[2025-01-17 07:07] LABS: Thyroid Stim Immunoglob 63.30 IU/L (0.00-0.55)
== END | disposition home or self-care (01) ==
LOC: LAB 15:30
PROVIDERS: Referring Provider Family Medicine; Visit Provider Family Medicine
DX: R94.6 Abnormal results of thyroid function studies (principal)
CPT/HCPCS: 36415; 84439; 84443; 84445; 84481; 86376; 86800

== ENCOUNTER → 2025-05-01 | Outpatient (CLI) | payer MEDICARE, SELFPAY ==
[2025-05-01 13:06] LABS: AST(SGOT) 23 U/L (<=37); Alanine Aminotransfer ALT/SGPT 19 U/L (<=46); Albumin, Serum 4.6 g/dL (3.4-4.8); Alkaline Phosphatase 75 U/L (40-129); Bilirubin, Direct 0.29 mg/dL (0.00-0.30); Cholesterol 201 mg/dL (<=200); Globulin 2.9 g/dL (2.2-4.2); Low Density Lipoprotein Calc. 116 mg/dL; Triglycerides 225 mg/dL; Very Low Density Lipoprotein 45 mg/dL (5-40); cholesterol:hdl ratio screen 4.35
== END | disposition home or self-care (01) ==
LOC: LAB 11:19
PROVIDERS: Nurse Practitioner Gerontology; PCP Family Medicine; Referring Provider Family Medicine; Visit Provider Family Medicine
DX: E03.9 Hypothyroidism, unspecified (principal); E78.5 Hyperlipidemia, unspecified
CPT/HCPCS: 36415; 80061; 80076; 84439; 84443